=== PATIENT | male | born 1935 | race Caucasian/White ===

== ENCOUNTER 2018-11-20 09:36 | Outpatient (CLI) | payer MEDICARE, BC ==
--- NOTE | 2018-11-20 13:10 | RAD ---
BIPHASIC ESOPHAGRAM: HISTORY: Dysphagia. FINDINGS: Swallowing was grossly normal. There was unobstructed flow of contrast through the esophagus and into the stomach. No obstructing mass, stricture or diverticulum is seen. A small hiatal hernia is presen t. Tertiary contractions are noted. IMPRESSION: 1. Presbyesophagus. 2. Hiatal hernia. POS: [facility]
== END 2018-11-20 09:37 | disposition home or self-care (01) ==
LOC: RAD 09:36
PROVIDERS: ATTEND Internal Medicine
DX: R13.10 Dysphagia, unspecified (principal); K44.9 Diaphragmatic hernia without obstruction or gangrene; K22.8 Other specified diseases of esophagus
CPT/HCPCS: 74220

== ENCOUNTER 2022-03-08 03:52 | Inpatient (IN) | payer MEDICARE, BC ==
[2022-03-08] MEDS ORDERED: Ondansetron PF 4 MG/2 ML Vial ONE ×2 (04:01→10:20)
[2022-03-08] MEDS ORDERED: Morphine 4 MG/ML VIAL ONE ×2 (04:28→06:04)
[2022-03-08 04:37] LABS: #Lymphocytes 0.4 thou/uL (1.20-3.40); #Monocytes 0.6 thou/uL (0.11-0.59); #Neutrophils 9.2 thou/uL (1.40-6.50); %Basophils 0.1 % (0.0-1.0); %Eosinophils 0.1 % (0.0-10.0); %Lymphocytes 3.5 % (21.0-51.0); %Monocytes 6.1 % (0.0-10.0); %Neutrophils 90.2 % (42.0-75.0); Hemoglobin 13.8 g/dL (14.0-18.0); Mean Corpuscular HGB CONC 32.5 g/dL (32.0-36.0); Mean Corpuscular Hemoglobin 30.9 pg (27.0-31.0); Mean Corpuscular Volume 94.8 fl (78.0-98.0); Mean Platelet Volume 8.9 fL (7.4-10.4); Platelet Count 176 10x3/uL (130-400); RBC Distribution Width 12.3 % (11.5-14.5); Red Blood Cell (RBC) Count 4.48 mill/uL (4.70-6.10); White Blood Cell (WBC) Count 10.2 10x3/uL (4.8-10.8)
[2022-03-08 04:55] LABS: ALT (SGPT) 193 U/L (8-55); AST (SGOT) 136 U/L (5-34); Albumin 3.9 g/dL (3.4-4.8); Alkaline Phosphatase 304 U/L (40-110); Anion Gap 15 mmol/L (10-20); BUN (Urea Nitrogen) 31 mg/dL (8.4-25.7); Bilirubin, Total 6.5 mg/dL (0.2-1.2); Calc. Creatinine Clearance 0 mL/min (70-130); Calcium 9.5 mg/dL (7.8-10.44); Carbon Dioxide 28 mmol/L (23-31); Chloride 100 mmol/L (98-107); Estimated GFR 55; Globulin 3.7 g/dL (2.4-3.5); Glucose 151 mg/dL (83-110); Protein, Total 7.6 g/dL (5.8-8.1); Sodium 139 mmol/L (136-145)
[2022-03-08 05:24] LABS: Lipase 13505 U/L (8-78)
[2022-03-08] MEDS ORDERED: Piperacillin/Tazobactam 3.375 GM VIAL ONE (05:49)
[2022-03-08 06:46] LABS: Bacteria/HPF None Seen HPF (None Seen); Bilirubin 1+ (Negative); Blood, Urine Trace (Negative); Clarity Clear (Clear); Glucose, Urine (Dipstick) Normal (Negative); Ketone, Urine Negative (Negative); Leukocyte Negative Leu/uL (Negative); Mucous/LPF 1+ LPF (<2+); Nitrite Negative (Negative); Protein, Urine (Dipstick) 50 mg/dL (Neg-Trace); RBC/HPF 0-3 HPF (0-3); Squamous Epithelial None Seen HPF (0-3); Urobilinogen 3 mg/dL (Less than 2); WBC/HPF 0-3 HPF (0-3); pH, Urine 5.5 (5.0-9.0)
[2022-03-08 07:43] LABS: SARS-CoV-2 NAA Rapid Test DETECTED (NotDetected)
[2022-03-08] MEDS ORDERED: Iopamidol 370 76% 100 ML VIAL ONE (09:08)
[2022-03-08] MEDS ORDERED: Acetaminophen 650 MG Suppository PR PRN (09:18)
[2022-03-08] MEDS ORDERED: Acetaminophen 325 MG TAB PO PRN (09:18)
[2022-03-08] MEDS ORDERED: HYDROcodone/Acetaminophen 5/325 mg Tablet PO PRN ×2 (09:18)
[2022-03-08] MEDS ORDERED: Bisacodyl 5 MG TAB PO PRN (09:18)
[2022-03-08] MEDS ORDERED: Morphine 4 MG/ML VIAL SLOW IVP PRN (09:23)
[2022-03-08] MEDS ORDERED: Morphine 2 MG/ML VIAL SLOW IVP PRN (09:23)
[2022-03-08 09:27] LABS: Troponin I Less than 0.010 ng/mL (< 0.028)
[2022-03-08] MEDS ORDERED: Ketorolac Tromethamine 30 MG/ML VIAL IVP SCH (09:30)
[2022-03-08] MEDS ORDERED: Lactated Ringer's 1,000 ML IV SCH (09:30)
[2022-03-08] MEDS: Lactated Ringer's 1,000 ML IV SCH ×3 (10:15→20:42)
[2022-03-08] MEDS ORDERED: Ketorolac Tromethamine 30 MG/ML VIAL ONE (10:15)
[2022-03-08 12:34] LABS: Troponin I Less than 0.010 ng/mL (< 0.028)
[2022-03-08] MEDS ORDERED: Piperacillin/Tazobactam 4.5 GM in Sodium Chloride 0.9% 100 ML IVPB SCH (14:00)
[2022-03-08] MEDS ORDERED: Piperacillin/Tazobactam 3.375 GM in Sodium Chloride 0.9% 100 ML IVPB SCH (14:00)
[2022-03-08 15:01] VITALS: BMI 24.0
[2022-03-08] MEDS: levETIRAcetam 500 MG TAB PO SCH (20:40)
[2022-03-08] MEDS: Amlodipine 5 MG TAB PO SCH (20:40)
[2022-03-09] MEDS: Piperacillin/Tazobactam 3.375 GM in Sodium Chloride 0.9% 100 ML IVPB SCH ×2 (00:21→13:00)
[2022-03-09] MEDS: Lactated Ringer's 1,000 ML IV SCH ×3 (03:37→21:51)
[2022-03-09 04:08] LABS: #Lymphocytes 0.8 thou/uL (1.20-3.40); #Monocytes 1.5 thou/uL (0.11-0.59); %Eosinophils 0.1 % (0.0-10.0); %Lymphocytes 4.1 % (21.0-51.0); %Monocytes 7.9 % (0.0-10.0); %Neutrophils 87.9 % (42.0-75.0); Mean Corpuscular HGB CONC 32.9 g/dL (32.0-36.0); Mean Corpuscular Hemoglobin 31.5 pg (27.0-31.0); Mean Corpuscular Volume 95.8 fl (78.0-98.0); Mean Platelet Volume 8.9 fL (7.4-10.4); Platelet Count 142 10x3/uL (130-400); RBC Distribution Width 12.7 % (11.5-14.5); Red Blood Cell (RBC) Count 4.11 mill/uL (4.70-6.10); White Blood Cell (WBC) Count 19.4 10x3/uL (4.8-10.8)
[2022-03-09 04:42] LABS: ALT (SGPT) 163 U/L (8-55); AST (SGOT) 104 U/L (5-34); Albumin 3.1 g/dL (3.4-4.8); Alkaline Phosphatase 260 U/L (40-110); Anion Gap 15 mmol/L (10-20); BUN (Urea Nitrogen) 35 mg/dL (8.4-25.7); Bilirubin, Total 4.5 mg/dL (0.2-1.2); Calc. Creatinine Clearance 44 mL/min (70-130); Calcium 8.5 mg/dL (7.8-10.44); Carbon Dioxide 26 mmol/L (23-31); Chloride 101 mmol/L (98-107); Estimated GFR 53; Globulin 3.3 g/dL (2.4-3.5); Glucose 73 mg/dL (83-110); Potassium 3.8 mmol/L (3.5-5.1); Protein, Total 6.4 g/dL (5.8-8.1); Sodium 138 mmol/L (136-145)
[2022-03-09 04:57] LABS: Lipase 1538 U/L (8-78)
[2022-03-09] MEDS ORDERED: fentaNYL PF 100 MCG/2 ML SYRINGE ONE ×2 (06:36→08:33)
[2022-03-09] MEDS ORDERED: Iopamidol 30 ML ONE (06:55)
[2022-03-09] MEDS ORDERED: Bupivacaine HCl 0.5%/Epinephrine 1:200,000/PF 30 ml Vial ONE ×3 (06:55→08:33)
[2022-03-09] MEDS ORDERED: Promethazine HCl 25 MG/ML VIAL IM PRN (07:10)
[2022-03-09] MEDS ORDERED: Ondansetron HCl/PF 4 MG/2 ML Vial IVP PRN (07:10)
[2022-03-09] MEDS ORDERED: Sodium Chloride 0.9% 0 ML ONE (07:20)
[2022-03-09] MEDS ORDERED: Piperacillin/Tazobactam 3.375 GM VIAL ONE (07:20)
[2022-03-09] MEDS ORDERED: PROPOFOL 200 MG/20 ML VIAL ONE (07:25)
[2022-03-09] MEDS ORDERED: Rocuronium Bromide 10 MG/ML (10ML VIAL) ONE (07:25)
[2022-03-09] MEDS ORDERED: Lidocaine 1% PF 5 ML VIAL ONE (07:25)
[2022-03-09] MEDS ORDERED: Dexamethasone 20 MG/5 ML VIAL ONE (07:25)
[2022-03-09] MEDS ORDERED: Ondansetron PF 4 MG/2 ML Vial ONE (07:25)
[2022-03-09] MEDS ORDERED: Zinc Sulfate 220 MG CAP PO SCH (09:00)
[2022-03-09 10:52] LABS: Magnesium 1.6 mg/dL (1.6-2.6); Phosphorus 3.2 mg/dL (2.3-4.7)
[2022-03-09] MEDS ORDERED: SUGAMMADEX SODIUM 200 MG/2 ML VIAL ONE (11:20)
[2022-03-09] MEDS ORDERED: Acetaminophen 500 MG TAB PO SCH (12:00)
[2022-03-09] MEDS ORDERED: Electrolyte Replacement Protocol FS SCH (12:30)
[2022-03-09] MEDS ORDERED: Magnesium 2 GM/50 ML(in water) 2 GM in Premix Bag 1 BAG IVPB SCH (12:45)
[2022-03-09] MEDS: levETIRAcetam 500 MG TAB PO SCH ×2 (13:02→21:44)
[2022-03-09] MEDS: Amlodipine 5 MG TAB PO SCH ×2 (14:44→21:44)
[2022-03-09] MEDS: Ascorbic Acid 500 mg Chewable Tablet PO SCH (15:06)
[2022-03-09] MEDS: Valsartan 80 MG TAB PO SCH (15:06)
[2022-03-09] MEDS: Ketorolac Tromethamine 30 MG/ML VIAL IVP PRN (15:11)
[2022-03-10 04:32] LABS: ALT (SGPT) 112 U/L (8-55); AST (SGOT) 78 U/L (5-34); Albumin 2.6 g/dL (3.4-4.8); Alkaline Phosphatase 162 U/L (40-110); Anion Gap 12 mmol/L (10-20); BUN (Urea Nitrogen) 43 mg/dL (8.4-25.7); Bilirubin, Total 2.9 mg/dL (0.2-1.2); Calc. Creatinine Clearance 44 mL/min (70-130); Calcium 8.2 mg/dL (7.8-10.44); Carbon Dioxide 25 mmol/L (23-31); Chloride 102 mmol/L (98-107); Estimated GFR 53; Globulin 3.1 g/dL (2.4-3.5); Glucose 91 mg/dL (83-110); Lipase 143 U/L (8-78); Potassium 4.1 mmol/L (3.5-5.1); Protein, Total 5.7 g/dL (5.8-8.1); Sodium 135 mmol/L (136-145)
[2022-03-10 04:49] LABS: Band 30 % (5-11); Hemoglobin 11.9 g/dL (14.0-18.0); Hypochromia SLIGHT = 6-15 cells (100X) (0-5/hpf); Lymphocytes 2 % (21-51); MDiff Complete? YES; Mean Corpuscular Volume 96.7 fl (78.0-98.0); Mean Platelet Volume 9.1 fL (7.4-10.4); Monocytes 4 % (0-10); Neutrophil 64 % (42-75); Platelet Count 151 10x3/uL (130-400); Platelet Morphology Comment Appears Adequate; RBC Distribution Width 12.7 % (11.5-14.5); Red Blood Cell (RBC) Count 3.85 mill/uL (4.70-6.10); White Blood Cell (WBC) Count 16.2 10x3/uL (4.8-10.8)
[2022-03-10] MEDS: Lactated Ringer's 1,000 ML IV SCH (05:41)
[2022-03-10] MEDS ORDERED: Lactated Ringer's 1,000 ML IV SCH (07:34)
[2022-03-10] MEDS ORDERED: Magnesium 2 GM/50 ML(in water) 2 GM in Premix Bag 1 BAG IVPB SCH (08:00)
[2022-03-10] MEDS: Valsartan 80 MG TAB PO SCH (08:55)
[2022-03-10] MEDS: levETIRAcetam 500 MG TAB PO SCH ×2 (08:55→20:45)
[2022-03-10] MEDS: Amlodipine 5 MG TAB PO SCH ×2 (08:55→20:45)
[2022-03-10] MEDS: Ascorbic Acid 500 mg Chewable Tablet PO SCH (08:55)
[2022-03-10] MEDS ORDERED: Pantoprazole 40 MG VIAL IVP SCH (09:00)
[2022-03-10] MEDS ORDERED: Ondansetron PF 4 MG/2 ML Vial IVP PRN (16:38)
[2022-03-10] MEDS ORDERED: Ondansetron ODT 4 MG TAB PO PRN (16:38)
[2022-03-10] MEDS: Acetaminophen 500 MG TAB PO PRN (17:15)
[2022-03-10] MEDS: Calcium Carbonate 500 MG ChewTAB PO PRN (17:50)
[2022-03-11] MEDS: Calcium Carbonate 500 MG ChewTAB PO PRN ×3 (04:05→23:21)
[2022-03-11 04:40] LABS: #Lymphocytes 0.9 thou/uL (1.20-3.40); #Monocytes 1.4 thou/uL (0.11-0.59); #Neutrophils 15.8 thou/uL (1.40-6.50); %Basophils 0.1 % (0.0-1.0); %Eosinophils 0.2 % (0.0-10.0); %Lymphocytes 4.7 % (21.0-51.0); %Monocytes 7.6 % (0.0-10.0); %Neutrophils 87.4 % (42.0-75.0); Hemoglobin 11.1 g/dL (14.0-18.0); Mean Corpuscular HGB CONC 31.8 g/dL (32.0-36.0); Mean Corpuscular Hemoglobin 31.1 pg (27.0-31.0); Mean Corpuscular Volume 97.8 fl (78.0-98.0); Platelet Count 191 10x3/uL (130-400); RBC Distribution Width 12.7 % (11.5-14.5); Red Blood Cell (RBC) Count 3.58 mill/uL (4.70-6.10); White Blood Cell (WBC) Count 18.1 10x3/uL (4.8-10.8)
[2022-03-11 05:06] LABS: ALT (SGPT) 75 U/L (8-55); AST (SGOT) 35 U/L (5-34); Albumin 2.4 g/dL (3.4-4.8); Alkaline Phosphatase 127 U/L (40-110); Anion Gap 8 mmol/L (10-20); BUN (Urea Nitrogen) 58 mg/dL (8.4-25.7); Bilirubin, Total 1.7 mg/dL (0.2-1.2); Calc. Creatinine Clearance 51 mL/min (70-130); Calcium 8.2 mg/dL (7.8-10.44); Carbon Dioxide 29 mmol/L (23-31); Chloride 99 mmol/L (98-107); Estimated GFR 63; Globulin 3.1 g/dL (2.4-3.5); Glucose 114 mg/dL (83-110); Magnesium 2.2 mg/dL (1.6-2.6); Potassium 3.4 mmol/L (3.5-5.1); Protein, Total 5.5 g/dL (5.8-8.1); Sodium 133 mmol/L (136-145)
[2022-03-11] MEDS ORDERED: Potassium Chloride 20 MEQ TAB PO SCH (08:00)
[2022-03-11] MEDS: Ascorbic Acid 500 mg Chewable Tablet PO SCH (08:20)
[2022-03-11] MEDS: Valsartan 80 MG TAB PO SCH (08:20)
[2022-03-11] MEDS: Amlodipine 5 MG TAB PO SCH (08:21)
[2022-03-11] MEDS: levETIRAcetam 500 MG TAB PO SCH ×2 (08:21→20:16)
[2022-03-11] MEDS: traMADol HCl 50 MG TAB PO PRN (09:58)
[2022-03-11] MEDS: Ketorolac Tromethamine 30 MG/ML VIAL IVP PRN (15:50)
[2022-03-11] MEDS: Saccharomyces boulardii 250 MG CAP PO SCH (20:22)
[2022-03-11] MEDS ORDERED: Multivit, Therapeutic 1 TAB PO SCH (21:00)
[2022-03-12] MEDS: Acetaminophen 500 MG TAB PO PRN (04:24)
[2022-03-12 04:50] LABS: #Monocytes 1.6 thou/uL (0.11-0.59); #Neutrophils 15.1 thou/uL (1.40-6.50); %Basophils 0.1 % (0.0-1.0); %Eosinophils 0.2 % (0.0-10.0); %Lymphocytes 5.4 % (21.0-51.0); %Monocytes 8.9 % (0.0-10.0); %Neutrophils 85.4 % (42.0-75.0); Hemoglobin 9.9 g/dL (14.0-18.0); Mean Corpuscular HGB CONC 33.2 g/dL (32.0-36.0); Mean Corpuscular Hemoglobin 32.2 pg (27.0-31.0); Mean Corpuscular Volume 96.8 fl (78.0-98.0); Mean Platelet Volume 8.6 fL (7.4-10.4); Platelet Count 222 10x3/uL (130-400); RBC Distribution Width 12.6 % (11.5-14.5); Red Blood Cell (RBC) Count 3.08 mill/uL (4.70-6.10); White Blood Cell (WBC) Count 17.7 10x3/uL (4.8-10.8)
[2022-03-12 05:13] LABS: ALT (SGPT) 51 U/L (8-55); AST (SGOT) 28 U/L (5-34); Albumin 2.6 g/dL (3.4-4.8); Alkaline Phosphatase 99 U/L (40-110); Anion Gap 12 mmol/L (10-20); BUN (Urea Nitrogen) 68 mg/dL (8.4-25.7); Bilirubin, Total 1.4 mg/dL (0.2-1.2); Calc. Creatinine Clearance 47 mL/min (70-130); Calcium 8.3 mg/dL (7.8-10.44); Carbon Dioxide 24 mmol/L (23-31); Chloride 98 mmol/L (98-107); Estimated GFR 57; Globulin 2.7 g/dL (2.4-3.5); Glucose 117 mg/dL (83-110); Phosphorus 1.6 mg/dL (2.3-4.7); Potassium 3.6 mmol/L (3.5-5.1); Protein, Total 5.3 g/dL (5.8-8.1); Sodium 130 mmol/L (136-145)
[2022-03-12] MEDS ORDERED: Magnesium 2 GM/50 ML(in water) 2 GM in Premix Bag 1 BAG IVPB SCH (08:00)
[2022-03-12] MEDS: Sodium Chloride 0.9% 1,000 ML IV SCH (10:27)
[2022-03-12] MEDS: PHOS-NAK 1 PKT PACK PO SCH ×2 (10:28→14:39)
[2022-03-12] MEDS: Ascorbic Acid 500 mg Chewable Tablet PO SCH (10:29)
[2022-03-12] MEDS: Valsartan 80 MG TAB PO SCH (10:30)
[2022-03-12] MEDS: levETIRAcetam 500 MG TAB PO SCH (10:54)
[2022-03-12] MEDS: Saccharomyces boulardii 250 MG CAP PO SCH (20:34)
[2022-03-13] MEDS: Sodium Chloride 0.9% 1,000 ML IV SCH (00:04)
[2022-03-13 04:42] LABS: #Eosinphils 0.1 thou/uL (0.0-0.7); #Lymphocytes 0.9 thou/uL (1.20-3.40); #Monocytes 1.3 thou/uL (0.11-0.59); #Neutrophils 12.7 thou/uL (1.40-6.50); %Eosinophils 0.5 % (0.0-10.0); %Lymphocytes 6.1 % (21.0-51.0); %Monocytes 8.8 % (0.0-10.0); %Neutrophils 84.6 % (42.0-75.0); Hemoglobin 8.5 g/dL (14.0-18.0); Mean Corpuscular HGB CONC 33.1 g/dL (32.0-36.0); Mean Corpuscular Hemoglobin 32.1 pg (27.0-31.0); Mean Corpuscular Volume 96.9 fl (78.0-98.0); Mean Platelet Volume 7.9 fL (7.4-10.4); Platelet Count 228 10x3/uL (130-400); RBC Distribution Width 12.7 % (11.5-14.5); Red Blood Cell (RBC) Count 2.66 mill/uL (4.70-6.10)
[2022-03-13 05:02] LABS: ALT (SGPT) 39 U/L (8-55); AST (SGOT) 29 U/L (5-34); Albumin 2.3 g/dL (3.4-4.8); Alkaline Phosphatase 78 U/L (40-110); Anion Gap 10 mmol/L (10-20); BUN (Urea Nitrogen) 53 mg/dL (8.4-25.7); Bilirubin, Total 1.3 mg/dL (0.2-1.2); Calc. Creatinine Clearance 52 mL/min (70-130); Carbon Dioxide 26 mmol/L (23-31); Chloride 101 mmol/L (98-107); Estimated GFR 64; Globulin 2.4 g/dL (2.4-3.5); Glucose 93 mg/dL (83-110); Potassium 4.3 mmol/L (3.5-5.1); Protein, Total 4.7 g/dL (5.8-8.1); Sodium 133 mmol/L (136-145)
[2022-03-13] MEDS: Levothyroxine Sodium 50 MCG TAB PO SCH (05:49)
[2022-03-13] MEDS: Multivitamin W/ Minerals 1 TAB PO SCH (09:53)
[2022-03-13] MEDS: Valsartan 80 MG TAB PO SCH (09:53)
[2022-03-13] MEDS: Ascorbic Acid 500 mg Chewable Tablet PO SCH (09:53)
[2022-03-13] MEDS: Dextrose 5%-Lactated Ringers 1,000 ML IV SCH (18:37)
[2022-03-13] MEDS ORDERED: Bisacodyl 10 MG SUPP PR PRN (18:42)
[2022-03-13] MEDS: Saccharomyces boulardii 250 MG CAP PO SCH (20:50)
[2022-03-14] MEDS: Dextrose 5%-Lactated Ringers 1,000 ML IV SCH ×3 (05:16→21:29)
[2022-03-14] MEDS: Levothyroxine Sodium 50 MCG TAB PO SCH (05:16)
[2022-03-14] MEDS: Valsartan 80 MG TAB PO SCH (09:20)
[2022-03-14] MEDS: Multivitamin W/ Minerals 1 TAB PO SCH (09:20)
[2022-03-14] MEDS: Ascorbic Acid 500 mg Chewable Tablet PO SCH (09:20)
[2022-03-14] MEDS: traMADol HCl 50 MG TAB PO PRN (13:07)
[2022-03-14] MEDS: Saccharomyces boulardii 250 MG CAP PO SCH (21:29)
[2022-03-14] MEDS: Acetaminophen 500 MG TAB PO PRN (21:30)
[2022-03-15] MEDS: Levothyroxine Sodium 50 MCG TAB PO SCH (07:24)
[2022-03-15 08:24] LABS: #Eosinphils 0.4 thou/uL (0.0-0.7); #Lymphocytes 1.1 thou/uL (1.20-3.40); #Neutrophils 6.2 thou/uL (1.40-6.50); %Basophils 0.1 % (0.0-1.0); %Eosinophils 4.9 % (0.0-10.0); %Lymphocytes 12.5 % (21.0-51.0); %Monocytes 11.2 % (0.0-10.0); %Neutrophils 71.2 % (42.0-75.0); Hemoglobin 8.2 g/dL (14.0-18.0); Mean Corpuscular HGB CONC 32.4 g/dL (32.0-36.0); Mean Corpuscular Hemoglobin 31.7 pg (27.0-31.0); Mean Corpuscular Volume 97.6 fl (78.0-98.0); Mean Platelet Volume 7.2 fL (7.4-10.4); Platelet Count 359 10x3/uL (130-400); RBC Distribution Width 13.3 % (11.5-14.5); Red Blood Cell (RBC) Count 2.59 mill/uL (4.70-6.10); White Blood Cell (WBC) Count 8.7 10x3/uL (4.8-10.8)
[2022-03-15 08:45] LABS: ALT (SGPT) 46 U/L (8-55); AST (SGOT) 31 U/L (5-34); Albumin 2.4 g/dL (3.4-4.8); Alkaline Phosphatase 81 U/L (40-110); Anion Gap 10 mmol/L (10-20); BUN (Urea Nitrogen) 24 mg/dL (8.4-25.7); Calc. Creatinine Clearance 61 mL/min (70-130); Calcium 7.9 mg/dL (7.8-10.44); Carbon Dioxide 24 mmol/L (23-31); Chloride 103 mmol/L (98-107); Estimated GFR 77; Globulin 2.6 g/dL (2.4-3.5); Glucose 101 mg/dL (83-110); Potassium 3.4 mmol/L (3.5-5.1); Sodium 134 mmol/L (136-145)
[2022-03-15] MEDS ORDERED: Potassium Chloride 20 MEQ TAB PO SCH (09:30)
[2022-03-15] MEDS: Valsartan 80 MG TAB PO SCH (11:01)
[2022-03-15] MEDS: Ascorbic Acid 500 mg Chewable Tablet PO SCH (11:01)
[2022-03-15] MEDS: Multivitamin W/ Minerals 1 TAB PO SCH (11:02)
[2022-03-15] MEDS: Polyethylene Glycol 3350 17 GM Packet PO SCH (11:02)
[2022-03-15] MEDS: Calcium Carbonate 500 MG ChewTAB PO PRN (12:36)
[2022-03-15] MEDS: Saccharomyces boulardii 250 MG CAP PO SCH (21:42)
[2022-03-16 00:27] VITALS: TEMP 97.8
[2022-03-16] MEDS: Levothyroxine Sodium 50 MCG TAB PO SCH ×2 (05:55→12:38)
[2022-03-16] MEDS ORDERED: Sodium Chloride 0.9% 1,000 ML IV SCH (07:00)
[2022-03-16] MEDS ORDERED: PROPOFOL 200 MG/20 ML VIAL ONE (09:28)
[2022-03-16] MEDS ORDERED: Lidocaine 1% PF 5 ML VIAL ONE (09:28)
[2022-03-16] MEDS ORDERED: Pantoprazole 40 MG VIAL IVP SCH ×3 (09:52→21:00)
[2022-03-16] MEDS: Valsartan 80 MG TAB PO SCH (12:38)
[2022-03-16] MEDS: Amlodipine 5 MG TAB PO SCH (12:39)
[2022-03-16] MEDS: Acetaminophen 500 MG TAB PO PRN (12:41)
[2022-03-16] MEDS: traMADol HCl 50 MG TAB PO PRN (12:45)
[2022-03-16 12:46] VITALS: BP 131/60
[2022-03-16] MEDS: Polyethylene Glycol 3350 17 GM Packet PO SCH (16:45)
[2022-03-16] MEDS: Ascorbic Acid 500 mg Chewable Tablet PO SCH (16:45)
[2022-03-16] MEDS: Multivitamin W/ Minerals 1 TAB PO SCH (16:45)
== END 2022-03-16 17:06 | disposition home or self-care (01) | DRG 408 ==
LOC: ERS 03:52 → ERHOLD 06:28 → 2NO 14:33 → SJJU 03-15 17:29
PROVIDERS: ADMIT Student in an Organized Health Care Education/Training Program; ATTEND Internal Medicine
PROC: 0F170ZB Bypass Common Hepatic Duct to Small Intestine, Open Approach (ICD-10-PCS; principal; 2022-03-09)
PROC: 0FT40ZZ Resection of Gallbladder, Open Approach (ICD-10-PCS; 2022-03-09)
PROC: 0FJ44ZZ Inspection of Gallbladder, Percutaneous Endoscopic Approach (ICD-10-PCS; 2022-03-09)
PROC: BF502Z0 Other Imaging of Bile Ducts using Fluorescing Agent, Intraoperative (ICD-10-PCS; 2022-03-09)
PROC: 0D758ZZ Dilation of Esophagus, Via Natural or Artificial Opening Endoscopic (ICD-10-PCS; 2022-03-16)
PROC: 0DB58ZX Excision of Esophagus, Via Natural or Artificial Opening Endoscopic, Diagnostic (ICD-10-PCS; 2022-03-16)
DX: K85.10 Biliary acute pancreatitis without necrosis or infection (principal); U07.1 COVID-19; K80.12 Calculus of gallbladder with acute and chronic cholecystitis without obstruction; I48.11 Longstanding persistent atrial fibrillation; N17.9 Acute kidney failure, unspecified; I10 Essential (primary) hypertension; E87.6 Hypokalemia; E83.42 Hypomagnesemia; K44.9 Diaphragmatic hernia without obstruction or gangrene; K20.90 Esophagitis, unspecified without bleeding; Z98.890 Other specified postprocedural states
CPT/HCPCS: 36415; 47532; 74018; 74177; 76705; 80053; 81003; 81015; 83605; 83690; 83735; 83880; 84100; 84443; 84484; 85025; 87040; 87086; 88304; 88305; 93005; 93306; 96361; 96365; 96372; 96375; 96376; A4649; C1713; C1889; C9113; J1100; J1611; J1650; J1885; J1956; J2270; J2405; J2543; J2704; J3475; J3490; J7050; J7120; Q9967

== ENCOUNTER 2024-12-03 13:57 | Outpatient (CLI) | payer MEDICARE, BC ==
[~2024-12-03 13:57] MED LIST: Iopamidol 370 76% 100 ML VIAL ONE
[2024-12-03 14:57] LABS: Estimated GFR - POC 53.0
== END 2024-12-03 13:58 | disposition home or self-care (01) ==
LOC: CT 13:57
PROVIDERS: ATTEND Student in an Organized Health Care Education/Training Program
DX: K86.2 Cyst of pancreas (principal); K65.4 Sclerosing mesenteritis; J90 Pleural effusion, not elsewhere classified
CPT/HCPCS: 36415; 74178; 82565; Q9967

== ENCOUNTER 2024-12-10 10:28 | Outpatient (CLI) | payer MEDICARE, BC | END 2024-12-10 10:29 | disposition home or self-care (01) | LOC: LABBT 10:28 | PROVIDERS: ATTEND Internal Medicine Cardiovascular Disease | DX: Z01.810 Encounter for preprocedural cardiovascular examination (principal); I48.19 Other persistent atrial fibrillation; Z91.81 History of falling | CPT/HCPCS: 93005; 93010 ==

== ENCOUNTER 2024-12-10 10:30 | Inpatient (IN) | payer MEDICARE, BC ==
[2024-12-10 10:43] VITALS: BMI 20.5
[2024-12-10 11:42] LABS: #Basophils 0.03 10x3/uL (0.0-0.2); #Eosinophils 0.05 10x3/uL (0.0-0.7); #Monocytes 0.75 10x3/uL (0.11-0.59); #Neutrophils 4.33 10x3/uL (1.40-6.50); %Basophils 0.5 % (0.0-1.0); %Eosinophils 0.8 % (0.0-10.0); %Lymphocytes 13.4 % (21.0-51.0); %Monocytes 12.6 % (0.0-10.0); %Neutrophils 72.5 % (42.0-75.0); Hematocrit 37.0 % (42.0-52.0); Hemoglobin 11.5 g/dL (14.0-18.0); Mean Corpuscular Hemoglobin 28.4 pg (27.0-31.0); Mean Corpuscular Volume 91.4 fL (78.0-98.0); Platelet Count 178 10x3/uL (130-400); Red Blood Cell (RBC) Count 4.05 mill/uL (4.70-6.10); White Blood Cell (WBC) Count 5.97 10x3/uL (4.8-10.8)
[2024-12-10 11:45] LABS: ALT (SGPT) 21 U/L (Less than 45); AST (SGOT) 30 U/L (11-34); Albumin 3.7 g/dL (3.1-4.5); Alkaline Phosphatase 101 U/L (40-110); Anion Gap 16 mmol/L (10-20); BUN (Urea Nitrogen) 30 mg/dL (8.4-25.7); Bilirubin, Total 0.9 mg/dL (0.3-1.2); Calc. Creatinine Clearance 0 mL/min (70-130); Calcium 9.5 mg/dL (7.8-10.44); Carbon Dioxide 30 mmol/L (23-31); Chloride 99 mmol/L (98-107); Globulin 3.9 g/dL (2.4-3.5); Glucose 87 mg/dL (83-110); Potassium 4.2 mmol/L (3.5-5.1); Sodium 141 mmol/L (136-145)
[2024-12-10 11:47] LABS: INR-International Normal Ratio 1.8; Prothrombin Time 20.6 sec (12.0-14.7)
[2024-12-10 11:48] LABS: PTT 40.2 sec (22.9-36.1)
[2024-12-17] MEDS ORDERED: Heparin 10,000 UNITS/ 10 ML VIAL ONE (08:51)
[2024-12-17] MEDS ORDERED: CEFAZOLIN 2 GM VIAL ONE (08:51)
[2024-12-17] MEDS ORDERED: SUGAMMADEX SODIUM 200 MG/2 ML VIAL ONE (09:29)
[2024-12-17] MEDS ORDERED: Rocuronium Bromide 10 MG/ML (10ML VIAL) ONE (09:30)
[2024-12-17] MEDS ORDERED: Ondansetron PF 4 MG/2 ML Vial ONE (09:30)
[2024-12-17] MEDS ORDERED: PHENYLEPHRINE-NS 100 MCG/ML 10 ML SYRINGE ONE (09:56)
[2024-12-17] MEDS ORDERED: PROPOFOL 200 MG/20 ML VIAL ONE (09:56)
[2024-12-17] MEDS ORDERED: Lidocaine 1% PF 5 ML VIAL ONE (09:56)
[2024-12-17] MEDS ORDERED: Iopamidol 370 76% 100 ML VIAL ONE (10:25)
== END 2024-12-17 14:55 | disposition home or self-care (01) | DRG 274 ==
LOC: SURG A 12-17 07:07
PROVIDERS: ADMIT Internal Medicine Cardiovascular Disease; ATTEND Internal Medicine Cardiovascular Disease
PROC: 02L73DK Occlusion of Left Atrial Appendage with Intraluminal Device, Percutaneous Approach (ICD-10-PCS; principal; 2024-12-17)
PROC: B245ZZ4 Ultrasonography of Left Heart, Transesophageal (ICD-10-PCS; 2024-12-17)
PROC: 3E03329 Introduction of Other Anti-infective into Peripheral Vein, Percutaneous Approach (ICD-10-PCS; 2024-12-17)
DX: I48.19 Other persistent atrial fibrillation (principal); Z00.6 Encounter for examination for normal comparison and control in clinical research program; I10 Essential (primary) hypertension; E78.5 Hyperlipidemia, unspecified; Z95.0 Presence of cardiac pacemaker; Z98.890 Other specified postprocedural states; Z79.899 Other long term (current) drug therapy; Z79.890 Hormone replacement therapy; Z98.41 Cataract extraction status, right eye; Z98.42 Cataract extraction status, left eye; Z96.643 Presence of artificial hip joint, bilateral; Z90.49 Acquired absence of other specified parts of digestive tract
CPT/HCPCS: 33340; 80053; 85025; 85347; 85610; 85730; 86850; 86900; 86901; 93312; C1753; C1760; C1889; C1893; C1894; J1100; J1644; J2405; J2704; J2720; J3010; Q9967

== ENCOUNTER 2025-02-03 08:59 | Outpatient (CLI) | payer MEDICARE, BC ==
[2025-02-03 09:58] LABS: #Basophils 0.04 10x3/uL (0.0-0.2); #Eosinophils 0.13 10x3/uL (0.0-0.7); #Monocytes 0.71 10x3/uL (0.11-0.59); #Neutrophils 2.88 10x3/uL (1.40-6.50); %Basophils 0.9 % (0.0-1.0); %Eosinophils 2.8 % (0.0-10.0); %Lymphocytes 17.9 % (21.0-51.0); %Monocytes 15.5 % (0.0-10.0); %Neutrophils 62.7 % (42.0-75.0); Hematocrit 39.2 % (42.0-52.0); Hemoglobin 11.9 g/dL (14.0-18.0); Mean Corpuscular Hemoglobin 28.7 pg (27.0-31.0); Mean Corpuscular Volume 94.5 fL (78.0-98.0); Platelet Count 169 10x3/uL (130-400); Red Blood Cell (RBC) Count 4.15 mill/uL (4.70-6.10); White Blood Cell (WBC) Count 4.59 10x3/uL (4.8-10.8)
[2025-02-03 10:14] LABS: INR-International Normal Ratio 2.1; Prothrombin Time 23.5 sec (12.0-14.7)
[2025-02-03 10:16] LABS: Anion Gap 11 mmol/L (10-20); BUN (Urea Nitrogen) 25 mg/dL (8.4-25.7); Calc. Creatinine Clearance 0 mL/min (70-130); Calcium 9.3 mg/dL (7.8-10.44); Carbon Dioxide 30 mmol/L (23-31); Chloride 103 mmol/L (98-107); Glucose 86 mg/dL (83-110); Potassium 4.4 mmol/L (3.5-5.1); Sodium 140 mmol/L (136-145)
== END 2025-02-03 09:00 | disposition home or self-care (01) ==
LOC: LABBT 08:59
PROVIDERS: ATTEND Student in an Organized Health Care Education/Training Program
DX: Z01.818 Encounter for other preprocedural examination (principal); K40.90 Unilateral inguinal hernia, without obstruction or gangrene, not specified as recurrent
CPT/HCPCS: 71046; 80048; 85025; 85610; 86850; 86900; 86901; 93005; 93010